=== PATIENT | female | born 1960 | race American Indian/Alaskan Native ===

== ENCOUNTER 2017-07-03 17:58 | Inpatient (IN) | payer MEDICARE ==
[2017-07-03 19:16] LABS: Basophils % (Auto) 0.4 % (0.0-1.8); Eosinophils % (Auto) 0.3 % (0.0-4.3); Hematocrit 33.9 % (30.3-42.9); Hemoglobin 10.8 gm/dl (10.1-14.3); Mean Corpuscular HGB Conc 32 % (30-34); Mean Corpuscular Volume 76 fl (79-97); Platelet Count 259 K/mm3 (140-440); Red Blood Count 4.45 M/mm3 (3.65-5.03); White Blood Count 8.1 K/mm3 (4.5-11.0)
[2017-07-03 19:18] LABS: Mean Corpuscular Hemoglobin 24 pg (28-32)
--- NOTE | 2017-07-03 19:30 | Emergency Department Report ---
ED Shortness of Breath HPI - General Chief Complaint: Dyspnea/Respdistress Stated Complaint: RESPIRATORY DISTRESS/POSS P.E Time Seen by Provider: 07/03/17 19:18 Source: patient, EMS, waterproof material folder Mode of arrival: Stretcher Limitations: Physical Limitation - History of Present Illness Initial Comments: Patient is a 57-year-old female history of asthma, CVA 2, hypertension sent from her primary care physician office for evaluation SHORTNESS of breath for the last few days. Patient stated that she has difficulty breathing when she woke she has leg swelling. Patient denied any chest pain, cough or fever. No nausea no vomiting. MD Complaint: shortness of breath -: Gradual Severity: moderate Known History Of: asthma - Related Data Allergies Allergy/AdvReac Type Severity Reaction Status Date / Time aspirin Allergy Unknown Verified 07/03/17 18:33 ED Review of Systems ROS: Stated complaint: RESPIRATORY DISTRESS/POSS P.E Other details as noted in HPI Comment: All other systems reviewed and negative Constitutional: denies: chills, fever Respiratory: orthopnea, shortness of breath, SOB with exertion, SOB at rest. denies: cough, wheezing Cardiovascular: denies: chest pain, palpitations ED Past Medical Hx - Past Medical History Hx Hypertension: Yes Hx CVA: Yes Hx Pulmonary Embolism: Yes Hx Asthma: Yes - Social History Smoking Status: Current Every Day Smoker Substance Use Type: Alcohol, Marijuana ED Physical Exam - General Limitations: Physical Limitation General appearance: alert, in no apparent distress - Head Head exam: Present: atraumatic, normocephalic, normal inspection - Eye Eye exam: Present: normal appearance, PERRL - ENT ENT exam: Present: normal exam, mucous membranes moist - Neck Neck exam: Present: normal inspection, full ROM. Absent: tenderness, meningismus - Respiratory Respiratory exam: Present: decreased breath sounds. Absent: respiratory distress, wheezes, rales, rhonchi - Cardiovascular Cardiovascular Exam: Present: regular rate, normal rhythm, normal heart sounds - GI/Abdominal GI/Abdominal exam: Present: soft, normal bowel sounds. Absent: distended, tenderness, guarding, rebound, rigid, organomegaly, mass, bruit, pulsatile mass , hernia - Extremities Exam Extremities exam: Present: normal inspection, full ROM, normal capillary refill. Absent: tenderness, pedal edema, joint swelling, calf tenderness - Neurological Exam Neurological exam: Present: alert, oriented X3, CN II-XII intact, normal gait - Skin Skin exam: Present: warm, intact, normal color. Absent: cyanosis ED Course Vital Signs 07/03/17 07/03/17 07/03/17 18:34 18:37 18:45 Temperature 97.6 F Pulse Rate 84 85 88 Respiratory 20 29 H 23 Rate Blood Pressure 141/93 O2 Sat by Pulse 97 98 96 Oximetry 07/03/17 07/03/17 18:50 19:00 Temperature Pulse Rate 82 Respiratory 22 26 H Rate Blood Pressure 124/88 O2 Sat by Pulse 96 96 Oximetry ED Medical Decision Making - Lab Data Result diagrams: 07/03/17 18:58 07/03/17 18:58 - EKG Data -: EKG Interpreted by Me EKG shows normal: sinus rhythm - EKG Data Interpretation: no acute changes - Radiology Data Radiology results: image reviewed Chest x-ray pulmonary edema. - Medical Decision Making Discussed with Dr. Maria E Lazar, presenting the patient, she agreed to admit the patient to her service. Critical care attestation.: If time is entered above; I have spent that time in minutes in the direct care of this critically ill patient, excluding procedure time. ED Disposition Clinical Impression: Shortness of breath, CHF exacerbation Disposition: OP ADMIT IP TO THIS HOSP Is pt being admited?: Yes Condition: Stable Referrals: PRIMARY CARE, [Primary Care Provider] - 3-5 Days
[2017-07-03 19:34] LABS: Anion Gap 18 mmol/L; BUN/Creatinine Ratio 19; Blood Urea Nitrogen 15 mg/dL (7-17); Calcium 8.4 mg/dL (8.4-10.2); Carbon Dioxide 24 mmol/L (22-30); Chloride 105.5 mmol/L (98-107); Glucose 97 mg/dL (65-100); Potassium 3.6 mmol/L (3.6-5.0); Sodium 144 mmol/L (137-145)
[2017-07-03 20:36] LABS: INR 2.21 (0.87-1.13)
[2017-07-03 20:37] LABS: Partial Thromboplastin Time 34.1 Sec. (24.2-36.6)
[2017-07-03] MEDS ORDERED: LASIX IV ONE (22:10)
[2017-07-04] MEDS ORDERED: DULCOLAX PR PRN (00:48)
[2017-07-04] MEDS ORDERED: MILK OF MAGNESIA PO PRN (00:48)
[2017-07-04] MEDS ORDERED: ZOFRAN IV PRN (00:48)
--- NOTE | 2017-07-04 00:52 | History and Physical Report ---
History of Present Illness Date of examination: 07/04/17 History of present illness: 57 year old woman with history of HTN, PE, asthma, CVA comes to the emergency room with complaints of SOB, lower extremity edema and orthropnea for 1 week. Review Of Systems: Constitutional: no weight loss Ears, eyes, nose, mouth and throat: no nasal congestion, no nasal discharge, no sinus pressure, blurry vision, diplopia Neck: No neck pain or rigidity. Cardiovascular: no chest pain, palpitations Respiratory: No cough Gastrointestinal: no abdominal pain, hematochezia Genitourinary : no dysuria, frequency , hematuria Musculoskeletal: no muscle ache Integumentary: no rash, no pruritis Neurological: no parathesias, focal weakness Endocrine: no cold or heat intolerance, no polyuria or polydipsia Hematologic/Lymphatic: no easy bruising, no easy bleeding, no gland swelling Allergic/Immunologic: no urticaria, no angioedema. PAST MEDICAL HISTORY:HTN, PE, asthma, CVA PAST SURGICAL HISTORY: tubal ligation, surgry on foot FAMILY HISTORY: Hypertension SOCIAL HISTORY: Denies alcohol, tobacco, drugs Medications and Allergies Allergies Allergy/AdvReac Type Severity Reaction Status Date / Time aspirin Allergy Unknown Verified 07/03/17 18:33 Home Medications Medication Instructions Recorded Confirmed Last Taken Type Albuterol Sulfate [Proair 90 mcg IH 6XD 07/04/17 07/04/17 1 Day Ago History Respiclick] ~07/03/17 Famotidine [Pepcid] 20 mg PO BID 07/04/17 07/04/17 1 Day Ago History ~07/03/17 Fluticasone [Flonase] 1 spray NS QDAY 07/04/17 07/04/17 1 Day Ago History ~07/03/17 Hydrochlorothiazide [HCTZ] 25 mg PO QDAY PRN 07/04/17 07/04/17 1 Week Ago History ~06/27/17 Ipratropium/Albuterol Sulfate 1 ampul IH Q6HR 07/04/17 07/04/17 1 Day Ago History [DUONEB *Not for PRN Use*] ~07/03/17 Metoprolol Xl [Metoprolol 25 mg PO QDAY 07/04/17 07/04/17 1 Day Ago History SUCCINATE ER TAB] ~07/03/17 Montelukast [Singulair] 10 mg PO QPM 07/04/17 07/04/17 1 Day Ago History ~07/03/17 PARoxetine [Paxil] 30 mg PO DAILY 07/04/17 07/04/17 1 Day Ago History ~07/03/17 Potassium Chloride [K-Dur] 10 meq PO QDAY 07/04/17 07/04/17 1 Week Ago History ~06/27/17 Simvastatin [Zocor TAB] 40 mg PO QHS 07/04/17 07/04/17 1 Day Ago History ~07/03/17 Warfarin Sodium [Coumadin] 4.5 mg PO DAILY 07/04/17 07/04/17 1 Day Ago History ~07/03/17 traZODone [Desyrel] 50 mg PO QHS PRN 07/04/17 07/04/17 1 Day Ago History ~07/03/17 Lisinopril [Zestril TAB] 2.5 mg PO QDAY #30 tablet 07/09/17 Unknown Rx Ondansetron [Zofran INJ] 4 mg IV Q8H PRN vial 07/09/17 Unknown Rx Exam - Physical Exam Narrative exam: Gen. appearance: Patient lying in bed in no acute distress HEENT: Normocephalic/atraumatic, pupils equal round reactive to light, extra alkaline movement intact, no scleral icterus, no JVD or thyromegaly or nodule, neck is supple, mucous membrane moist, no erythema or exudate Heart: S1-S2, regular rate and rhythm Lungs: Crackles bilateral breathing comfortable Abdomen: Positive bowel sounds, nontender, nondistended, no organomegaly Extremities: + edema, cyanosis, clubbing Neuro:: Oriented 3 , cranial nerves II-12 intact, speech, motor intact Skin: No rash, nodules, warm dry - Constitutional Vitals: Temp Pulse Resp BP Pulse Ox 97.6 F 82 26 H 124/88 96 07/03/17 18:34 07/03/17 19:00 07/03/17 19:00 07/03/17 19:00 07/03/17 19:00 Results - Labs CBC & Chem 7: 07/07/17 14:28 07/07/17 14:28 Labs: Abnormal lab results 07/03/17 07/03/17 07/03/17 Range/Units 18:58 19:38 19:38 MCV 76 L (79-97) fl MCH 24 L (28-32) pg RDW 18.0 H (13.2-15.2) % Lymph % (Auto) 11.9 L (13.4-35.0) % Lymph # 1.0 L (1.2-5.4) K/mm3 Seg Neutrophils % 81.4 H (40.0-70.0) % PT 25.8 H (12.2-14.9) Sec. INR 2.21 H (0.87-1.13) D-Dimer 297.20 H (0-234) ng/mlDDU NT-Pro-B Natriuret Pep 4214 H (0-900) pg/mL - Imaging and Cardiology EKG: image reviewed Chest x-ray: image reviewed Assessment and Plan Assessment CHF, acute , new onst, prob diastolic Hypertension Plmonary emboli on coumadin Asthma Admit to medicine Diurese with IV lasix Start BB, ACEI, no asa, atient allergic Check cardiac enzymes, echo Consult cardiology Monitor I/Os, daily weights continue outpatient medications , dvt prophalaxis with coumadin
[2017-07-04] MEDS: LASIX IV SCH ×2 (05:52→19:17)
--- NOTE | 2017-07-04 07:33 | XRay Report ---
CHEST 2 VIEWS INDICATION: Shortness of breath. COMPARISON: None similar. FINDINGS: PA and lateral chest radiographs demonstrate increased markings centrally and predominantly in mid to lower lung zones. Fluid or thickening along the fissures as also small bibasilar pleural effusions also suspected. Peribronchial thickening. Top normal heart size. EKG leads. Mild thoracic dextroscoliosis apex about T8. CONCLUSION: Small bilateral pleural effusions and mild CHF suspected radiographically, as described. Please also correlate clinically and with prior chest imaging, if available. Thank you for the opportunity to participate in this patient's care.
[2017-07-04] MEDS ORDERED: LOPRESSOR PO SCH (10:00)
[2017-07-04] MEDS: ZESTRIL PO SCH (10:26)
[2017-07-04] MEDS ORDERED: PNEUMOVAX 23 IM ONE (12:00)
[2017-07-04] MEDS ORDERED: Fluarix Quad 2017-2018(36 MOS+ IM ONE (12:00)
[2017-07-04] MEDS ORDERED: HCTZ PO PRN (13:58)
[2017-07-04] MEDS ORDERED: DESYREL PO PRN (13:58)
--- NOTE | 2017-07-04 16:07 | Consultation ---
History of Present Illness Consult date: 07/04/17 Consult reason: congestive heart failure History of present illness: This is a 57yr old woman who was sent from her primary care physicians office for shortness of breath. There was no reports of chest pain or palpitations. A chest x-ray report suspects CHF. A 12 lead ECG is a normal sinus rhythm, no acute ischemic changes. Initial workup shows an INR of 2.2. Patient has a history of old CVA with right sided weakness and Hypertension. She is on warfarin for oral anticoagulation. Her most recent cardiac workup was done a year ago. She had a normal myocardial perfusion persantine thallium stress test. An echocardiogram done reports a moderate aortic stenosis. Normal left ventricular systolic function, ejection fraction 55%. Medications and Allergies Allergies Allergy/AdvReac Type Severity Reaction Status Date / Time aspirin Allergy Unknown Verified 07/03/17 18:33 Home Medications Medication Instructions Recorded Confirmed Last Taken Type Albuterol Sulfate [Proair 90 mcg IH 6XD 07/04/17 07/04/17 1 Day Ago History Respiclick] ~07/03/17 Famotidine [Pepcid] 20 mg PO BID 07/04/17 07/04/17 1 Day Ago History ~07/03/17 Fluticasone [Flonase] 1 spray NS QDAY 07/04/17 07/04/17 1 Day Ago History ~07/03/17 Hydrochlorothiazide [HCTZ] 25 mg PO QDAY PRN 07/04/17 07/04/17 1 Week Ago History ~06/27/17 Ipratropium/Albuterol Sulfate 1 ampul IH Q6HR 07/04/17 07/04/17 1 Day Ago History [DUONEB *Not for PRN Use*] ~07/03/17 Metoprolol Xl [Metoprolol 25 mg PO QDAY 07/04/17 07/04/17 1 Day Ago History SUCCINATE ER TAB] ~07/03/17 Montelukast [Singulair] 10 mg PO QPM 07/04/17 07/04/17 1 Day Ago History ~07/03/17 PARoxetine [Paxil] 30 mg PO DAILY 07/04/17 07/04/17 1 Day Ago History ~07/03/17 Potassium Chloride [K-Dur] 10 meq PO QDAY 07/04/17 07/04/17 1 Week Ago History ~06/27/17 Simvastatin [Zocor TAB] 40 mg PO QHS 07/04/17 07/04/17 1 Day Ago History ~07/03/17 Warfarin Sodium [Coumadin] 4.5 mg PO DAILY 07/04/17 07/04/17 1 Day Ago History ~07/03/17 traZODone [Desyrel] 50 mg PO QHS PRN 07/04/17 07/04/17 1 Day Ago History ~07/03/17 Active Meds: Active Medications Acetaminophen (Tylenol) 650 mg PO Q4H PRN PRN Reason: Pain MILD(1-3)/Fever >100.5/[place] Albuterol/Ipratropium (Duoneb *Not For Prn Use*) 1 ampul IH Q6HR [facility] Bisacodyl (Dulcolax) 10 mg IN QDAY PRN PRN Reason: Constipation unrelieved by [facility] Fluticasone Propionate (Flonase) 50 mcg NS QDAY [facility] Furosemide (Lasix) 40 mg IV BID@0600,1800 [facility] Last Admin: 07/04/17 05:52 Dose: 40 mg Hydrochlorothiazide (Hctz) 25 mg PO QDAY PRN PRN Reason: Edema Lisinopril (Zestril) 2.5 mg PO QDAY [facility] Last Admin: 07/04/17 10:26 Dose: 2.5 mg Magnesium Hydroxide (Milk Of Magnesia) 30 ml PO Q4H PRN PRN Reason: Constipation Metoprolol Succinate (Toprol Xl) 25 mg PO QDAY [facility] Montelukast Sodium (Singulair) 10 mg PO QPM [facility] Ondansetron HCl (Zofran) 4 mg IV Q8H PRN PRN Reason: N/V unrelieved by [facility] Paroxetine HCl (Paxil) 30 mg PO DAILY [facility] Potassium Chloride (K-Dur) 10 meq PO QDAY [facility] Pravastatin Sodium (Pravachol) 80 mg PO QHS [facility] Trazodone HCl (Desyrel) 50 mg PO QHS PRN PRN Reason: Anxiety Warfarin Sodium (Coumadin Pharmacy To Dose) 1 each PO PKCONSULT [facility] PRN Reason: Protocol Warfarin Sodium (Coumadin) 2.5 mg PO DAILY@1700 [facility] Warfarin Sodium (Coumadin) 2 mg PO DAILY@1700 [facility] Physical Examination Vital Signs Temp Pulse Resp BP Pulse Ox 97.6 F 84 20 141/93 97 07/03/17 18:34 07/03/17 18:34 07/03/17 18:34 07/03/17 18:34 07/03/17 18:34 General appearance: no acute distress HEENT: Positive: PERRL Cardiac: Positive: Reg Rate and Rhythm Results 07/03/17 18:58 07/03/17 18:58 Coagulation 07/03/17 Range/Units 19:38 PT 25.8 H (12.2-14.9) Sec. INR 2.21 H (0.87-1.13) APTT 34.1 (24.2-36.6) Sec. CBC 07/03/17 Range/Units 18:58 WBC 8.1 (4.5-11.0) K/mm3 RBC 4.45 (3.65-5.03) M/mm3 Hgb 10.8 (10.1-14.3) gm/dl Hct 33.9 (30.3-42.9) % Plt Count 259 (140-440) K/mm3 Lymph # 1.0 L (1.2-5.4) K/mm3 [place] # 0.5 (0.0-0.8) K/mm3 Eos # 0.0 (0.0-0.4) K/mm3 Baso # 0.0 (0.0-0.1) K/mm3 Comprehensive Metabolic Panel 07/03/17 Range/Units 18:58 Sodium 144 (137-145) mmol/L Potassium 3.6 (3.6-5.0) mmol/L Chloride 105.5 (98-107) mmol/L Carbon Dioxide 24 (22-30) mmol/L BUN 15 (7-17) mg/dL Creatinine 0.8 (0.7-1.2) mg/dL Glucose 97 (65-100) mg/dL Calcium 8.4 (8.4-10.2) mg/dL Assessment and Plan Shortness of breath no evidence of DVT Hypertension Prior CVA on warfarin for oral anticoagulation
[2017-07-04] MEDS ORDERED: COUMADIN PO SCH ×2 (17:00)
[2017-07-04] MEDS ORDERED: DUONEB *Not for PRN Use IH SCH (18:00)
--- NOTE | 2017-07-04 18:10 | Cat Scan Report ---
FINAL REPORT EXAM: CT ANGIO CHEST HISTORY: PE TECHNIQUE: CT examination of the chest with IV contrast CT angiographic 2D and thick slab 3D image post-processing PRIORS: None. FINDINGS: Enlarged thyroid versus nodule extending from lower pole of left thyroid lobe. It is hypodense and may be a cyst. Normal cardiac size without pericardial effusion. Intact normal caliber thoracic aorta. Normal-appearing esophagus. No mediastinal adenopathy. Slight prominence of lymphoid tissue in both giovanni may be reactive. Small bilateral pleural effusions layering posteriorly. Slight fluid extends into the right major and minor fissure. The visualized pulmonary arteries are diffusely patent bilaterally. There is no filling defect to suggest PE. Smoothly marginated hypodense right and left hepatic lobe lesions are nonspecific and may reflect cysts and/or hemangiomas. These are too small to characterize. They do not enhance with IV contrast. Low-density likely fatty lesion in left adrenal gland suggestive of benign lipid rich adenoma. No evidence of acute fracture. No pneumothorax. Slight linear atelectasis in both lung bases posteriorly. 5.5 mm nonspecific pulmonary nodule in the lateral lingula, series 3, image 67. This is a small flat nodule along the fissure and may be a pulmonary reactive lymph node. Small calcified granuloma left upper lobe. IMPRESSION: Lingular fissural nodule may be a pulmonary reactive lymph node. Consider follow-up surveillance chest CT in 1 year Enlarged left thyroid lobe with inferior extension versus nodule extending from lower pole of left thyroid Slight prominence of lymphoid tissue in both giovanni may be reactive Small bilateral pleural effusions layering posteriorly and tracking into the right minor fissure Small liver lesions suggestive of cysts and/or hemangiomas Low-density likely fatty lesion in left adrenal gland suggestive of benign lipid rich adenoma Slight linear atelectasis in both lung bases posteriorly No CT evidence of PE
[2017-07-04] MEDS: SINGULAIR PO SCH (19:19)
[2017-07-04] MEDS: DUONEB *Not for PRN Use IH SCH (20:29)
[2017-07-04] MEDS: PRAVACHOL PO SCH (21:15)
[2017-07-04] MEDS ORDERED: NON-FORMULARY (Simvastatin 40 MG) PO SCH (22:00)
--- NOTE | 2017-07-04 22:53 | Event Note ---
Date: 07/04/17 patient seen and examined in no acute distress. still with shortness of breath. patient reports hx of 3 strokes in the past. will check CTA to rule out PE, although doubt this with therapeutic INR. also r/o lower ext DVT. continue current management. discussed with cardiology team
[2017-07-05] MEDS: DUONEB *Not for PRN Use IH SCH ×4 (00:42→19:26)
[2017-07-05] MEDS: LASIX IV SCH ×2 (05:22→17:21)
[2017-07-05 07:03] LABS: Basophils % (Auto) 0.3 % (0.0-1.8); Hematocrit 39.7 % (30.3-42.9); Hemoglobin 13.1 gm/dl (10.1-14.3); Mean Corpuscular HGB Conc 33 % (30-34); Mean Corpuscular Volume 76 fl (79-97); Platelet Count 264 K/mm3 (140-440); Red Blood Count 5.22 M/mm3 (3.65-5.03); Red Cell Distribution Width 18.2 % (13.2-15.2); White Blood Count 5.6 K/mm3 (4.5-11.0)
[2017-07-05 07:11] LABS: Mean Corpuscular Hemoglobin 25 pg (28-32)
--- NOTE | 2017-07-05 07:14 | Vascular Lab Report ---
LOWER EXTREMITY VENOUS DUPLEX: REASON FOR EXAM: Swelling of the lower extremities. COMMENTS ON THE RIGHT: All veins visualized are freely compressible without evidence of internal echogenicity. Flow is spontaneous and phasic throughout. COMMENTS ON THE LEFT: All veins visualized are freely compressible without evidence of internal echogenicity. Flow is spontaneous and phasic throughout. IMPRESSION: No evidence of acute or chronic deep venous thrombosis in either lower extremity.
[2017-07-05 07:18] LABS: INR 1.83 (0.87-1.13)
[2017-07-05 07:19] LABS: Partial Thromboplastin Time 33.1 Sec. (24.2-36.6)
[2017-07-05 07:25] LABS: Anion Gap 22 mmol/L; BUN/Creatinine Ratio 14; Blood Urea Nitrogen 13 mg/dL (7-17); Calcium 8.7 mg/dL (8.4-10.2); Carbon Dioxide 25 mmol/L (22-30); Chloride 97.9 mmol/L (98-107); Glucose 95 mg/dL (65-100); Potassium 3.2 mmol/L (3.6-5.0); Sodium 142 mmol/L (137-145)
[2017-07-05] MEDS: TYLENOL PO PRN (08:31)
--- NOTE | 2017-07-05 09:51 | Progress Note ---
Assessment and Plan Heart failure with a preserved EF 50% no evidence of DVT low probability for PE on CTA Severe Mitral stenosis Hypertension Prior CVA Hx of PE on warfarin for oral anticoagulation Recommendations: Patient will benefit from a right and left heart catheterization once heart failure is optimally resolved. We will hold warfarin and plan a right and left cardiac cath on Saturday. Subjective Date of service: 07/05/17 Interval history: Patient denies chest pain and reports her breathing is better. Objective Vital Signs Temp Pulse Pulse Resp Resp BP BP 07/05/17 07:38 85 20 07/05/17 07:16 83 20 07/05/17 04:14 98.2 F 73 18 109/71 07/05/17 04:00 80 07/05/17 00:38 07/04/17 23:36 98.1 F 81 18 116/69 07/04/17 20:32 79 16 07/04/17 20:24 74 15 07/04/17 19:51 98.4 F 78 18 96/54 07/04/17 17:00 98.8 F 105 H 20 187/96 07/04/17 16:27 98.8 F 67 20 117/73 Pulse Ox 07/05/17 07:38 07/05/17 07:16 96 07/05/17 04:14 96 07/05/17 04:00 07/05/17 00:38 97 07/04/17 23:36 98 07/04/17 20:32 97 07/04/17 20:24 07/04/17 19:51 97 07/04/17 17:00 96 07/04/17 16:27 99 - Physical Examination General: No Apparent Distress HEENT: Positive: PERRL Cardiac: Positive: Reg Rate and Rhythm Lungs: Positive: Decreased Breath Sounds Neuro: Positive: Grossly Intact - Labs and Meds Coagulation 07/05/17 Range/Units 06:05 PT 22.2 H (12.2-14.9) Sec. INR 1.83 H (0.87-1.13) APTT 33.1 (24.2-36.6) Sec. CBC 07/05/17 Range/Units 06:05 WBC 5.6 (4.5-11.0) K/mm3 RBC 5.22 H (3.65-5.03) M/mm3 Hgb 13.1 (10.1-14.3) gm/dl Hct 39.7 (30.3-42.9) % Plt Count 264 (140-440) K/mm3 Lymph # 1.2 (1.2-5.4) K/mm3 [place] # 0.5 (0.0-0.8) K/mm3 Eos # 0.1 (0.0-0.4) K/mm3 Baso # 0.0 (0.0-0.1) K/mm3 Comprehensive Metabolic Panel 07/05/17 Range/Units 06:05 Sodium 142 (137-145) mmol/L Potassium 3.2 L (3.6-5.0) mmol/L Chloride 97.9 L (98-107) mmol/L Carbon Dioxide 25 (22-30) mmol/L BUN 13 (7-17) mg/dL Creatinine 0.9 (0.7-1.2) mg/dL Glucose 95 (65-100) mg/dL Calcium 8.7 (8.4-10.2) mg/dL - Imaging and Cardiology EKG: image reviewed
[2017-07-05] MEDS ORDERED: WARFARIN SODIUM 4.5 MG PO SCH (10:00)
[2017-07-05] MEDS: ZESTRIL PO SCH (10:51)
[2017-07-05] MEDS: K-DUR PO SCH (10:52)
[2017-07-05] MEDS: PAXIL PO SCH (10:52)
[2017-07-05] MEDS: TOPROL XL PO SCH (10:52)
[2017-07-05] MEDS: FLONASE NS SCH (10:52)
[2017-07-05] MEDS ORDERED: K-DUR PO ONE (13:00)
--- NOTE | 2017-07-05 16:53 | Progress Note ---
Assessment and Plan Assessment and plan: 57 year old woman with history of HTN, PE, asthma, CVA comes to the emergency room with complaints of SOB, lower extremity [place] and orthropnea for 1 week. CHF, acute , new onst, diastolic Hypertension Severe mitral valve stenosis CVA-old with no residual effects Pulmonary emboli on coumadin Asthma Plan Continue Diurese with IV lasix Start Lovenox discontinue warfarin for planned cardiac catheterization Discussed with Dr. Dawson patient to have cardiac catheterization for left heart right heart evaluation on Saturday Continue BB, ACEI, no asa, patient's is allergic to aspirin Check cardiac enzymes, echo Consult cardiology Monitor I/Os, daily weights continue outpatient medications , dvt prophalaxis with coumadin DVT and GI prophylaxis Plan of care discussed with the patient in detail she verbalized understanding Plan also discussed with [employer] general supervisor. History Interval history: Patient seen and examined this morning in nonacute distress reports improvement in shortness of breath. Denies any nausea vomiting or diarrhea denies any fever. Hospitalist Physical - Physical exam Narrative exam: VITAL SIGNS: Reviewed. GENERAL: The patient appeared well nourished and normally developed. Vital signs as documented. HEAD: No signs of head trauma. EYES: Pupils are equal. Extraocular motions intact. EARS: Hearing grossly intact. MOUTH: Oropharynx is normal. NECK: No adenopathy, no JVD. CHEST: Chest with clear breath sounds bilaterally. No wheezes, rales, or rhonchi. CARDIAC: Regular rate and rhythm. S1 and S2, and diastolic heart murmur,no gallops, or rubs. VASCULAR: No Edema. Peripheral pulses normal and equal in all extremities. ABDOMEN: Soft, without detectable tenderness. No sign of distention. No rebound or guarding, and no masses palpated. Bowel Sounds normal. MUSCULOSKELETAL: Good range of motion of all major joints. Extremities without clubbing, cyanosis or edema. NEUROLOGIC EXAM: Alert and oriented x 3. No focal sensory or strength deficits. Speech normal. Follows commands. PSYCHIATRIC: Mood normal. SKIN: No rash or lesions. - Constitutional Vitals: Temp Pulse Resp BP Pulse Ox 98.4 F 89 20 95/59 94 07/05/17 10:04 07/05/17 14:14 07/05/17 14:14 07/05/17 10:04 07/05/17 10:04 General appearance: Present: no acute distress Results - Labs CBC & Chem 7: 07/05/17 06:05 07/05/17 06:05 Labs: Laboratory Last Values WBC 5.6 K/mm3 (4.5-11.0) 07/05/17 06:05 RBC 5.22 M/mm3 (3.65-5.03) H 07/05/17 06:05 Hgb 13.1 gm/dl (10.1-14.3) 07/05/17 06:05 Hct 39.7 % (30.3-42.9) 07/05/17 06:05 MCV 76 fl (79-97) L 07/05/17 06:05 MCH 25 pg (28-32) L 07/05/17 06:05 MCHC 33 % (30-34) 07/05/17 06:05 RDW 18.2 % (13.2-15.2) H 07/05/17 06:05 Plt Count 264 K/mm3 (140-440) 07/05/17 06:05 Lymph % (Auto) 21.4 % (13.4-35.0) 07/05/17 06:05 [place] % (Auto) 9.3 % (0.0-7.3) H 07/05/17 06:05 Eos % (Auto) 1.0 % (0.0-4.3) 07/05/17 06:05 Baso % (Auto) 0.3 % (0.0-1.8) 07/05/17 06:05 Lymph # 1.2 K/mm3 (1.2-5.4) 07/05/17 06:05 [place] # 0.5 K/mm3 (0.0-0.8) 07/05/17 06:05 Eos # 0.1 K/mm3 (0.0-0.4) 07/05/17 06:05 Baso # 0.0 K/mm3 (0.0-0.1) 07/05/17 06:05 Seg Neutrophils % 68.0 % (40.0-70.0) 07/05/17 06:05 Seg Neutrophils # 3.8 K/mm3 (1.8-7.7) 07/05/17 06:05 PT 22.2 Sec. (12.2-14.9) H 07/05/17 06:05 INR 1.83 (0.87-1.13) H 07/05/17 06:05 APTT 33.1 Sec. (24.2-36.6) 07/05/17 06:05 D-Dimer 297.20 ng/mlDDU (0-234) H 07/03/17 19:38 Sodium 142 mmol/L (137-145) 07/05/17 06:05 Potassium 3.2 mmol/L (3.6-5.0) L 07/05/17 06:05 Chloride 97.9 mmol/L (98-107) L 07/05/17 06:05 Carbon Dioxide 25 mmol/L (22-30) 07/05/17 06:05 Anion Gap 22 mmol/L 07/05/17 06:05 BUN 13 mg/dL (7-17) 07/05/17 06:05 Creatinine 0.9 mg/dL (0.7-1.2) 07/05/17 06:05 Estimated GFR > 60 ml/min 07/05/17 06:05 BUN/Creatinine Ratio 14 % 07/05/17 06:05 Glucose 95 mg/dL (65-100) 07/05/17 06:05 Calcium 8.7 mg/dL (8.4-10.2) 07/05/17 06:05 Troponin T < 0.010 ng/mL (0.00-0.029) 07/03/17 18:58 NT-Pro-B Natriuret Pep 4214 pg/mL (0-900) H 07/03/17 19:38 HCG, Qual Negative (Negative) 07/03/17 18:58
[2017-07-05] MEDS: SINGULAIR PO SCH (17:21)
[2017-07-05] MEDS: PRAVACHOL PO SCH (21:19)
[2017-07-05] MEDS: LOVENOX SUB-Q SCH (21:19)
[2017-07-06] MEDS: DUONEB *Not for PRN Use IH SCH ×4 (01:34→20:44)
[2017-07-06] MEDS: LASIX IV SCH ×2 (06:21→17:03)
[2017-07-06 08:11] LABS: INR 1.77 (0.87-1.13)
[2017-07-06] MEDS: FLONASE NS SCH (10:29)
[2017-07-06] MEDS: K-DUR PO SCH (10:29)
[2017-07-06] MEDS: PAXIL PO SCH (10:29)
[2017-07-06] MEDS: LOVENOX SUB-Q SCH ×2 (10:29→21:07)
--- NOTE | 2017-07-06 10:29 | Progress Note ---
Assessment and Plan Assessment and plan: Assessment and Plan Assessment and plan: 57 year old woman with history of HTN, PE, asthma, CVA comes to the emergency room with complaints of SOB, lower extremity edeman and orthropnea for 1 week. CHF, acute , new onst, diastolic Hypertension Severe mitral valve stenosis CVA-old with no residual effects Pulmonary emboli on coumadin Asthma Plan Continue Diuresis with IV lasix Start Lovenox discontinue warfarin for planned cardiac catheterization Discussed with Dr. Dawson patient to have cardiac catheterization for left heart right heart evaluation on Saturday Continue BB, ACEI, no asa, patient's is allergic to aspirin Check cardiac enzymes, echo Consult cardiology Monitor I/Os, daily weights continue outpatient medications , dvt prophalaxis with coumadin DVT and GI prophylaxis Plan of care discussed with the patient in detail she verbalized understanding Plan also discussed with lead generator. Cath on Saturday History Interval history: Due for Cath on Saturday No Chest pain Hospitalist Physical - Constitutional Vitals: Temp Pulse Resp BP Pulse Ox 97.8 F 58 L 16 97/65 98 07/06/17 09:03 07/06/17 09:03 07/06/17 09:03 07/06/17 09:03 07/06/17 09:03 General appearance: Present: no acute distress - EENT Eyes: Present: PERRL, EOM intact - Neck Neck: Present: supple, normal ROM - Respiratory Respiratory effort: normal Respiratory: bilateral: CTA - Cardiovascular Heart rate: 78 Rhythm: regular - Extremities Extremities: no ischemia, pulses intact Peripheral Pulses: within normal limits - Abdominal General gastrointestinal: soft, non-tender, normal bowel sounds - Integumentary Integumentary: Present: clear, warm - Psychiatric Psychiatric: appropriate mood/affect, intact judgment & insight, memory intact, cooperative - Neurologic Neurologic: CNII-XII intact - Allied Health Allied health notes reviewed: nursing, case management Results - Labs CBC & Chem 7: 07/05/17 06:05 07/05/17 06:05 Labs: Laboratory Last Values WBC 5.6 K/mm3 (4.5-11.0) 07/05/17 06:05 RBC 5.22 M/mm3 (3.65-5.03) H 07/05/17 06:05 Hgb 13.1 gm/dl (10.1-14.3) 07/05/17 06:05 Hct 39.7 % (30.3-42.9) 07/05/17 06:05 MCV 76 fl (79-97) L 07/05/17 06:05 MCH 25 pg (28-32) L 07/05/17 06:05 MCHC 33 % (30-34) 07/05/17 06:05 RDW 18.2 % (13.2-15.2) H 07/05/17 06:05 Plt Count 264 K/mm3 (140-440) 07/05/17 06:05 Lymph % (Auto) 21.4 % (13.4-35.0) 07/05/17 06:05 Karnes % (Auto) 9.3 % (0.0-7.3) H 07/05/17 06:05 Eos % (Auto) 1.0 % (0.0-4.3) 07/05/17 06:05 Baso % (Auto) 0.3 % (0.0-1.8) 07/05/17 06:05 Lymph # 1.2 K/mm3 (1.2-5.4) 07/05/17 06:05 Karnes # 0.5 K/mm3 (0.0-0.8) 07/05/17 06:05 Eos # 0.1 K/mm3 (0.0-0.4) 07/05/17 06:05 Baso # 0.0 K/mm3 (0.0-0.1) 07/05/17 06:05 Seg Neutrophils % 68.0 % (40.0-70.0) 07/05/17 06:05 Seg Neutrophils # 3.8 K/mm3 (1.8-7.7) 07/05/17 06:05 PT 21.6 Sec. (12.2-14.9) H 07/06/17 06:54 INR 1.77 (0.87-1.13) H 07/06/17 06:54 APTT 33.1 Sec. (24.2-36.6) 07/05/17 06:05 D-Dimer 297.20 ng/mlDDU (0-234) H 07/03/17 19:38 Sodium 142 mmol/L (137-145) 07/05/17 06:05 Potassium 3.2 mmol/L (3.6-5.0) L 07/05/17 06:05 Chloride 97.9 mmol/L (98-107) L 07/05/17 06:05 Carbon Dioxide 25 mmol/L (22-30) 07/05/17 06:05 Anion Gap 22 mmol/L 07/05/17 06:05 BUN 13 mg/dL (7-17) 07/05/17 06:05 Creatinine 0.9 mg/dL (0.7-1.2) 07/05/17 06:05 Estimated GFR > 60 ml/min 07/05/17 06:05 BUN/Creatinine Ratio 14 % 07/05/17 06:05 Glucose 95 mg/dL (65-100) 07/05/17 06:05 Calcium 8.7 mg/dL (8.4-10.2) 07/05/17 06:05 Troponin T < 0.010 ng/mL (0.00-0.029) 07/03/17 18:58 NT-Pro-B Natriuret Pep 4214 pg/mL (0-900) H 07/03/17 19:38 HCG, Qual Negative (Negative) 07/03/17 18:58
[2017-07-06] MEDS: TOPROL XL PO SCH (11:05)
[2017-07-06] MEDS: ZESTRIL PO SCH (11:05)
--- NOTE | 2017-07-06 11:49 | Progress Note ---
Assessment and Plan Heart failure with a preserved EF 50% no evidence of DVT low probability for PE on CTA Severe Mitral stenosis Hypertension Prior CVA Hx of PE on warfarin for oral anticoagulation Recommendations: Patient will benefit from a right and left heart catheterization once heart failure is optimally resolved. We will hold warfarin and plan a right and left cardiac cath on Saturday. Subjective Date of service: 07/06/17 Interval history: No cardiac complaints. Objective Vital Signs Temp Pulse Pulse Pulse Pulse Resp Resp 07/06/17 11:05 58 L 07/06/17 10:00 58 L 58 L 16 07/06/17 09:03 97.8 F 58 L 16 07/06/17 06:03 98.7 F 91 H 20 07/06/17 01:44 88 18 07/06/17 01:34 85 18 07/05/17 23:45 98.8 F 92 H 20 07/05/17 19:57 98.2 F 101 H 20 07/05/17 19:36 88 18 07/05/17 19:26 86 18 07/05/17 19:15 92 H 07/05/17 17:00 98.2 F 92 H 20 07/05/17 14:14 89 20 07/05/17 13:47 85 20 BP BP Pulse Ox 07/06/17 11:05 97/65 07/06/17 10:00 98 07/06/17 09:03 97/65 98 07/06/17 06:03 96/63 94 07/06/17 01:44 07/06/17 01:34 07/05/17 23:45 83/50 96 07/05/17 19:57 92/55 100 07/05/17 19:36 07/05/17 19:26 07/05/17 19:15 07/05/17 17:00 86/50 96 07/05/17 14:14 07/05/17 13:47 - Physical Examination General: No Apparent Distress HEENT: Positive: PERRL Neck: Positive: neck supple Cardiac: Positive: Reg Rate and Rhythm, Systolic Murmur, Diastolic Murmur Lungs: Positive: clear to auscultation, Decreased Breath Sounds Neuro: Positive: Grossly Intact Abdomen: Positive: Soft, Active Bowel Sounds - Labs and Meds Coagulation 07/06/17 Range/Units 06:54 PT 21.6 H (12.2-14.9) Sec. INR 1.77 H (0.87-1.13) - Imaging and Cardiology EKG: image reviewed
[2017-07-06] MEDS: SINGULAIR PO SCH (17:09)
[2017-07-06] MEDS: PRAVACHOL PO SCH (21:07)
[2017-07-06] MEDS ORDERED: PROVENTIL IH PRN (21:28)
[2017-07-07 05:34] LABS: INR 1.49 (0.87-1.13)
[2017-07-07] MEDS: DUONEB *Not for PRN Use IH SCH ×3 (08:51→20:43)
[2017-07-07] MEDS: LOVENOX SUB-Q SCH ×2 (09:15→22:45)
[2017-07-07] MEDS: PAXIL PO SCH (09:16)
[2017-07-07] MEDS: K-DUR PO SCH (09:17)
[2017-07-07] MEDS: TOPROL XL PO SCH (09:17)
[2017-07-07] MEDS: TYLENOL PO PRN (09:17)
[2017-07-07] MEDS: ZESTRIL PO SCH (10:18)
[2017-07-07] MEDS ORDERED: NACL 0.9% 500 ML 500 ML IV SCH (12:00)
--- NOTE | 2017-07-07 12:00 | Progress Note ---
Assessment and Plan Heart failure with a preserved EF 50% no evidence of DVT low probability for PE on CTA Severe Mitral stenosis Hypertension Prior CVA Hx of PE on warfarin for oral anticoagulation - currently held Recommendations: Patient will benefit from a right and left heart catheterization once heart failure is optimally resolved. We will hold warfarin and plan a right and left cardiac cath on Saturday. Subjective Date of service: 07/07/17 Interval history: No cardiac complaints. Objective Vital Signs Temp Pulse Pulse Resp Resp BP BP 07/07/17 09:30 98.8 F 84 20 101/65 07/07/17 08:00 70 16 07/07/17 03:19 98.9 F 90 18 92/56 07/06/17 23:31 98.6 F 98 H 18 100/64 07/06/17 20:50 109 H 20 07/06/17 20:40 98 H 20 07/06/17 20:08 98.4 F 86 18 101/62 07/06/17 20:00 86 07/06/17 17:39 97.8 F 106 H 18 94/62 07/06/17 16:41 103 H 94/62 07/06/17 15:26 77 18 07/06/17 15:16 82 18 07/06/17 12:49 98.4 F 69 109/64 07/06/17 12:01 92 H Pulse Ox 07/07/17 09:30 96 07/07/17 08:00 07/07/17 03:19 100 07/06/17 23:31 96 07/06/17 20:50 07/06/17 20:40 07/06/17 20:08 96 07/06/17 20:00 07/06/17 17:39 97 07/06/17 16:41 98 07/06/17 15:26 07/06/17 15:16 07/06/17 12:49 07/06/17 12:01 99 - Physical Examination General: No Apparent Distress HEENT: Positive: PERRL Neck: Positive: neck supple Cardiac: Positive: Reg Rate and Rhythm, Systolic Murmur Lungs: Positive: clear to auscultation Neuro: Positive: Grossly Intact Abdomen: Positive: Soft, Active Bowel Sounds Extremities: Absent: edema - Labs and Meds Coagulation 07/07/17 Range/Units 05:08 PT 18.8 H (12.2-14.9) Sec. INR 1.49 H (0.87-1.13) - Imaging and Cardiology EKG: image reviewed
[2017-07-07 16:21] LABS: Anion Gap 22 mmol/L; BUN/Creatinine Ratio 16; Basophils % (Auto) 0.9 % (0.0-1.8); Blood Urea Nitrogen 13 mg/dL (7-17); Calcium 9.3 mg/dL (8.4-10.2); Carbon Dioxide 22 mmol/L (22-30); Chloride 100.9 mmol/L (98-107); Eosinophils % (Auto) 1.3 % (0.0-4.3); Glucose 86 mg/dL (65-100); Hematocrit 40.3 % (30.3-42.9); Hemoglobin 12.8 gm/dl (10.1-14.3); Mean Corpuscular HGB Conc 32 % (30-34); Mean Corpuscular Volume 77 fl (79-97); Platelet Count 257 K/mm3 (140-440); Potassium 4.6 mmol/L (3.6-5.0); Red Blood Count 5.24 M/mm3 (3.65-5.03); Red Cell Distribution Width 18.4 % (13.2-15.2); Sodium 140 mmol/L (137-145); White Blood Count 5.1 K/mm3 (4.5-11.0)
[2017-07-07 16:31] LABS: Mean Corpuscular Hemoglobin 24 pg (28-32)
[2017-07-07] MEDS: FLONASE NS SCH (16:42)
--- NOTE | 2017-07-07 17:00 | Progress Note ---
Assessment and Plan 57 year old woman with history of HTN, PE, asthma, CVA comes to the emergency room with complaints of SOB, lower extremity edeman and orthropnea for 1 week. Heart Failure, acute. New onst, diastolic failure Hypertension Severe mitral valve stenosis CVA-old with no residual effects Pulmonary emboli on coumadin Asthma Plan Continue Diuresis with IV lasix Start Lovenox discontinue warfarin for planned cardiac catheterization Pt to have right and left heart cath per Cardiology, Dr. Dawson on Saturday, Continue BB, ACEI, no asa, patient's is allergic to aspirin Chelsie nl, echo showed 50-55% EF with diastolic dysfunction. Monitor I/Os, daily weights Continue with duoneb for Asthma continue outpatient medications, dvt prophalaxis with lovenox DVT and GI prophylaxis Plan of care discussed with the patient in detail she verbalized understanding Subjective Date of service: 07/07/17 Principal diagnosis: Acute on chronic heart failure Interval history: Denies any chest pain or shortness of breath Objective - Constitutional Vitals: Vital Signs - 12hr 07/07/17 07/07/17 07/07/17 07:48 08:00 08:10 Temperature 98.8 F Pulse Rate 86 Pulse Rate [ 70 72 Anterior Bilateral Throughout] Respiratory 30 H Rate Respiratory 16 18 Rate [Anterior Bilateral Throughout] Blood Pressure 101/65 Blood Pressure [Left] O2 Sat by Pulse 97 Oximetry 07/07/17 07/07/17 07/07/17 09:17 09:30 10:18 Temperature 98.8 F Pulse Rate 84 Pulse Rate [ Anterior Bilateral Throughout] Respiratory 20 Rate Respiratory Rate [Anterior Bilateral Throughout] Blood Pressure 101/65 101/65 Blood Pressure 101/65 [Left] O2 Sat by Pulse 96 Oximetry 07/07/17 07/07/17 07/07/17 13:00 14:36 14:58 Temperature 98 F Pulse Rate 116 H Pulse Rate [ 82 83 Anterior Bilateral Throughout] Respiratory 24 Rate Respiratory 18 18 Rate [Anterior Bilateral Throughout] Blood Pressure Blood Pressure 100/67 [Left] O2 Sat by Pulse 97 Oximetry General appearance: Present: no acute distress, well-nourished - EENT Eyes: PERRL, EOM intact - Neck Neck: supple, normal ROM - Respiratory Respiratory effort: normal Respiratory: bilateral: CTA - Cardiovascular Rhythm: regular Heart Sounds: Present: S1 & S2. Absent: gallop, rub Extremities: pulses intact, No edema, normal color, Full ROM - Gastrointestinal General gastrointestinal: Present: soft, non-tender, non-distended, normal bowel sounds - Integumentary Integumentary: clear, warm, dry - Musculoskeletal Musculoskeletal: 1, strength equal bilaterally - Neurologic Neurologic: moves all extremities - Psychiatric Psychiatric: memory intact, appropriate mood/affect, intact judgment & insight - Labs CBC & Chem 7: 07/07/17 14:28 07/07/17 14:28 Labs: Abnormal lab results 07/07/17 07/07/17 Range/Units 05:08 14:28 RBC 5.24 H (3.65-5.03) M/mm3 MCV 77 L (79-97) fl MCH 24 L (28-32) pg RDW 18.4 H (13.2-15.2) % Pender % (Auto) 14.4 H (0.0-7.3) % Lymph # 1.1 L (1.2-5.4) K/mm3 PT 18.8 H (12.2-14.9) Sec. INR 1.49 H (0.87-1.13)
[2017-07-07] MEDS: LASIX IV SCH ×2 (18:02→19:37)
[2017-07-07] MEDS: SINGULAIR PO SCH (18:03)
[2017-07-07] MEDS: PRAVACHOL PO SCH (22:45)
[2017-07-08] MEDS ORDERED: NACL 0.9% 500 ML 500 ML IV SCH
[2017-07-08 06:17] LABS: INR 1.29 (0.87-1.13)
[2017-07-08] MEDS: DUONEB *Not for PRN Use IH SCH ×3 (09:10→20:08)
[2017-07-08] MEDS ORDERED: NITROGLYCERIN SYRINGE 0 ML ONE (11:47)
[2017-07-08] MEDS ORDERED: NACL 0.9% 250ML 250 ML ONE (11:47)
[2017-07-08] MEDS ORDERED: HEPARIN/NS 5000 UNIT/500ML(CATH LAB) 1,500 ML IR ONE (11:47)
[2017-07-08] MEDS ORDERED: HEPARIN 10,000 UNITS/10 ML ONE (11:47)
[2017-07-08] MEDS: SUBLIMAZE ONE ×2 (12:02→12:09)
[2017-07-08] MEDS: VERSED ONE ×2 (12:02→12:09)
[2017-07-08] MEDS: XYLOCAINE 2% INFILTRATI ONE ×2 (12:02→12:10)
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
--- NOTE | 2017-07-08 13:17 | Cardiac Catherization Report ---
CARDIAC CATHETERIZATION REPORT REASON FOR PROCEDURE: The patient is a 57-year-old woman, who presented with heart failure, echocardiogram demonstrated severe mitral stenosis. A right and left heart catheterization was recommended. PROCEDURE: 1. Right heart catheterization. 2. Left heart catheterization. 3. Left ventricular angiography. 4. Selective right and left coronary angiography. The patient was prepped and draped in a sterile fashion after informed consent. The right femoral artery and vein were both entered using the Seldinger technique. A 6-Sammarinese sheath was placed in the artery and an 8-Sammarinese sheath in the vein. [place] catheter was then advanced to the pulmonary artery position. Cardiac output was measured using a thermodilution method. A pigtail catheter was then advanced into the left ventricle. Simultaneous right and left heart filling pressures were recorded. The [place] catheter was then withdrawn, and right heart pressures were recorded on pullback of the [place]. The pigtail catheter was then withdrawn across the aortic valve and transaortic pressures were recorded. Finally, selective left and right coronary angiography was performed using #4 right and left Ortiz catheters. The catheters were then withdrawn, sheaths removed, and hemostasis achieved using manual compression. The patient was returned to the postprocedure unit in stable condition. There were no complications. FINDINGS: HEMODYNAMICS: The mean right atrial pressure was 12. Right ventricular pressure was 60/15. Pulmonary artery pressure was 60/30. The mean pulmonary artery wedge pressure was 30. Left ventricular end-diastolic pressure was 20 to 25. Cardiac output 4.64 liters per minute. Ascending aortic pressure was 104/55. There was no significant pressure gradient on pullback across the aortic valve. MITRAL VALVE STENOSIS: Simultaneous left ventricular end diastolic and pulmonary artery wedge pressures revealed a mean transmitral gradient of 18.3 mmHg. Using the Gorlin equation, the mitral valve area was calculated at 0.89 square cm. CORONARY ANGIOGRAPHY: The left main, left anterior descending artery and its diagonal branches were free of significant disease. The circumflex artery and its obtuse marginal branches contained mild irregularities. The right coronary artery was dominant and was similarly free of significant disease. There was normal left ventricular systolic function with ejection fraction estimated at 50%. CONCLUSION: 1. Severe mitral valve stenosis, with a mean transmitral gradient of 18.3 and valve area calculated at 0.89 square cm. 2. Moderate pulmonary hypertension. 3. No significant coronary artery disease, essentially angiographically near normal coronary arteries. 4. Normal left ventricular systolic function, ejection fraction 50%. RECOMMENDATION: The patient will be recommended for CT surgical evaluation for mitral valve replacement. JOB# [id number] CA/NTS
[2017-07-08] MEDS ORDERED: NACL 0.9% 1000 ML 1,000 ML IV SCH (14:00)
--- NOTE | 2017-07-08 17:00 | Progress Note ---
Assessment and Plan Acute diastolic heart failure: Cardiac cath showed severe MS, moderate pulmonary hypertension, left ventricle ejection fraction of 50%. On Lasix, beta lilia and aneesh inhibitor. Patient is allergic to aspirin. History of pulmonary embolism: D/c warfarin because of planned cardiac catheter , on Lovenox. Hypertension: On antihypertensive meds. Old CVA with no residual neurodeficits: On statin and Lovenox. Patient allergic to aspirin. Asthma: On bronchodilators. DVT prophylaxis with Lovenox. Disposition: Lay on her back for 12 hrs b/c of cardiac cath via femoral cardiac. Possible D/c in am Subjective Date of service: 07/08/17 Principal diagnosis: Acute on chronic heart failure Interval history: No overnight events. Has no complaints. Objective - Constitutional Vitals: Vital Signs - 12hr 07/08/17 07/08/17 07/08/17 06:04 08:00 08:25 Temperature 98.4 F 98.4 F Pulse Rate 81 83 Pulse Rate [ 86 Anterior Bilateral Throughout] Respiratory 18 18 Rate Respiratory 18 Rate [Anterior Bilateral Throughout] Blood Pressure 98/57 Blood Pressure 94/62 [Left] O2 Sat by Pulse 98 100 Oximetry 07/08/17 07/08/17 07/08/17 09:13 11:00 12:21 Temperature 97.4 F L Pulse Rate 77 82 Pulse Rate [ 88 Anterior Bilateral Throughout] Respiratory 20 Rate Respiratory 18 Rate [Anterior Bilateral Throughout] Blood Pressure Blood Pressure 114/59 [Left] O2 Sat by Pulse 97 Oximetry 07/08/17 07/08/17 15:04 15:26 Temperature 98.2 F Pulse Rate 83 85 Pulse Rate [ Anterior Bilateral Throughout] Respiratory 18 Rate Respiratory Rate [Anterior Bilateral Throughout] Blood Pressure 98/59 Blood Pressure 97/61 [Left] O2 Sat by Pulse 97 97 Oximetry General appearance: Present: no acute distress, well-nourished - EENT Eyes: PERRL, EOM intact ENT: hearing intact, clear oral mucosa Ears: bilateral: normal - Neck Neck: supple, normal ROM - Respiratory Respiratory effort: normal Respiratory: bilateral: CTA - Breasts Breasts: normal - Cardiovascular Rhythm: regular Heart Sounds: Present: S1 & S2. Absent: gallop, rub Extremities: pulses intact, No edema, normal color, Full ROM - Gastrointestinal General gastrointestinal: Present: soft, non-tender, non-distended, normal bowel sounds - Genitourinary Female genitourinary: normal - Integumentary Integumentary: clear, warm, dry - Musculoskeletal Musculoskeletal: 1, strength equal bilaterally - Neurologic Neurologic: moves all extremities - Psychiatric Psychiatric: memory intact, appropriate mood/affect, intact judgment & insight - Labs CBC & Chem 7: 07/07/17 14:28 07/07/17 14:28 Labs: Abnormal lab results 07/08/17 Range/Units 04:44 PT 16.8 H (12.2-14.9) Sec. INR 1.29 H (0.87-1.13)
[2017-07-08] MEDS: TOPROL XL PO SCH (18:21)
[2017-07-08] MEDS: K-DUR PO SCH (18:21)
[2017-07-08] MEDS: ZESTRIL PO SCH (18:21)
[2017-07-08] MEDS: LASIX IV SCH (18:21)
[2017-07-08] MEDS: PAXIL PO SCH (18:21)
[2017-07-08] MEDS: LOVENOX SUB-Q SCH ×2 (18:21→21:45)
[2017-07-08] MEDS: FLONASE NS SCH (18:21)
[2017-07-08] MEDS: SINGULAIR PO SCH (18:40)
[2017-07-08] MEDS: PRAVACHOL PO SCH (21:45)
[2017-07-09 06:22] LABS: INR 1.14 (0.87-1.13)
[2017-07-09] MEDS: LASIX IV SCH (06:29)
[2017-07-09] MEDS: DUONEB *Not for PRN Use IH SCH (07:37)
[2017-07-09 09:04] VITALS: BP 107/60
--- NOTE | 2017-07-09 09:49 | Discharge Summary ---
Providers - Providers Date of Admission: 07/04/17 00:48 Attending physician: JIMBO KANG MD 07/04/17 00:48 Consult to Physician [CONS] Routine Consulting Provider: EDWARD VALERA Reason For Exam: chf Place consult to:: [facility] Notified:: y Comment:: added to list 07/08/17 13:05 Consult to Cardiac Rehabilitation [CONS] Routine Reason For Exam: Cardiac Rehab Evaluation Primary care physician: NET SORTER Hospitalization Reason for admission: SHORTNESS OF BREATH Condition: Stable Hospital course: 57 year old woman with history of HTN, PE, asthma, CVA comes to the emergency room with complaints of SOB, lower extremity edeman and orthropnea for 1 week. She was noted to have acute diastolic congestive heart failure and was treated, cardiology recommmended a cardiac cath for better evaluation of mitral valve stenosis noted on echo, it was noted to be severe, the patient was refered to a CT surgeon at [facility] and agreed but wanted to go home first. she was discharged in stable condition with explanation of severity of her condition. CHF, acute , new onset, diastolic Hypertension Severe mitral valve stenosis CVA-old with no residual effects Pulmonary emboli on coumadin Asthma Moderate pulmonary HTN. Disposition: DC-01 TO HOME OR SELFCARE Time spent for discharge: 35 mins Core Measure Documentation - Palliative Care Palliative Care/ Comfort Measures: Not Applicable - Core Measures Any of the following diagnoses?: heart failure - VTE Discharge Requirements Deep Vein Thrombosis/Pulmonary Embolism Present on Admission: No - Heart Failure Discharge Requirements EBNOY/ARB for LVSD if EF <40%: Yes Beta lilia at discharge: Yes Exam - Physical Exam Narrative exam: VITAL SIGNS: Reviewed. GENERAL: The patient appeared well nourished and normally developed. Vital signs as documented. HEAD: No signs of head trauma. EYES: Pupils are equal. Extraocular motions intact. EARS: Hearing grossly intact. MOUTH: Oropharynx is normal. NECK: No adenopathy, no JVD. CHEST: Chest with clear breath sounds bilaterally. No wheezes, rales, or rhonchi. CARDIAC: Regular rate and rhythm. S1 and S2, and diastolic heart murmur,no gallops, or rubs. VASCULAR: No Edema. Peripheral pulses normal and equal in all extremities. ABDOMEN: Soft, without detectable tenderness. No sign of distention. No rebound or guarding, and no masses palpated. Bowel Sounds normal. MUSCULOSKELETAL: Good range of motion of all major joints. Extremities without clubbing, cyanosis or edema. NEUROLOGIC EXAM: Alert and oriented x 3. No focal sensory or strength deficits. Speech normal. Follows commands. PSYCHIATRIC: Mood normal. SKIN: No rash or lesions. - Constitutional Vitals: Temp Pulse Resp BP Pulse Ox 98.8 F 94 H 18 107/60 100 07/09/17 09:03 07/09/17 09:03 07/09/17 09:03 07/09/17 09:03 07/09/17 09:03 Plan Activity: advance as tolerated, fall precautions Diet: low salt Special Instructions: record daily weights, record daily BP diary Follow up with: EDWARD VALERA MD [Staff Physician] - 7 Days MARIIA THOMPSON MD [Referring] - 7 Days DREAD CERON MD [Referring] - 07/15/17 3:30 pm (Please bring the CD with the images from your Cardiac Catherization & ECHO when you come to this appointment. If you do not bring the CD with you, your appointment will have to be re-scheduled. Thank you.) PRIMARY CARE, [Primary Care Provider] - 3-5 Days Forms: CardCath PCI D/C Instructions, Warfarin Discharge Instruction Prescriptions: Lisinopril [Zestril TAB] 2.5 mg PO QDAY #30 tablet
[2017-07-09] MEDS ORDERED: LOVENOX SUB-Q SCH (10:00)
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
[2017-07-09] MEDS: PAXIL PO SCH (10:57)
[2017-07-09] MEDS: FLONASE NS SCH (10:57)
[2017-07-09] MEDS: K-DUR PO SCH (10:58)
[2017-07-09] MEDS: TOPROL XL PO SCH (10:58)
[2017-07-09] MEDS: ZESTRIL PO SCH (10:58)
== END 2017-07-09 16:35 | disposition home or self-care (01) | DRG 287 ==
LOC: ED 17:58 → 4A 07-04 00:48
PROVIDERS: ADMIT Internal Medicine; ATTEND Internal Medicine
PROC: 3E0234Z Introduction of Serum, Toxoid and Vaccine into Muscle, Percutaneous Approach (ICD-10-PCS; 2017-07-04)
PROC: 4A023N8 Measurement of Cardiac Sampling and Pressure, Bilateral, Percutaneous Approach (ICD-10-PCS; principal; 2017-07-08)
PROC: B2111ZZ Fluoroscopy of Multiple Coronary Arteries using Low Osmolar Contrast (ICD-10-PCS; 2017-07-08)
PROC: B2161ZZ Fluoroscopy of Right and Left Heart using Low Osmolar Contrast (ICD-10-PCS; 2017-07-08)
DX: I11.0 Hypertensive heart disease with heart failure (principal); I69.351 Hemiplegia and hemiparesis following cerebral infarction affecting right dominant side; J45.909 Unspecified asthma, uncomplicated; F12.90 Cannabis use, unspecified, uncomplicated; F17.200 Nicotine dependence, unspecified, uncomplicated; I50.33 Acute on chronic diastolic (congestive) heart failure; I05.0 Rheumatic mitral stenosis; I27.20 Pulmonary hypertension, unspecified; Z88.6 Allergy status to analgesic agent; Z86.711 Personal history of pulmonary embolism; Z79.01 Long term (current) use of anticoagulants; Z72.89 Other problems related to lifestyle; Z79.899 Other long term (current) drug therapy; Z98.51 Tubal ligation status; Z79.51 Long term (current) use of inhaled steroids; Z23 Encounter for immunization
CPT/HCPCS: 36415; 71020; 71275; 80048; 82962; 83880; 84484; 84703; 85025; 85379; 85610; 85730; 90686; 90732; 93005; 93010; 93306; 93460; 93970; 94640; 96374; 99406; A9270-GY; C1769; C1894; J1644; J1650; J1940; J2250; J3010; J7040; J7050; Q9967

== ENCOUNTER 2017-08-21 00:25 | Emergency (ER) | payer MEDICARE ==
[2017-08-21 01:36] VITALS: BP 103/61
[2017-08-21 02:31] LABS: Basophils % (Auto) 0.5 % (0.0-1.8); Eosinophils # (Auto) 0.1 K/mm3 (0.0-0.4); Eosinophils % (Auto) 1.4 % (0.0-4.3); Hemoglobin 9.4 gm/dl (10.1-14.3); Lymphocytes # (Auto) 0.9 K/mm3 (1.2-5.4); Mean Corpuscular HGB Conc 33 % (30-34); Mean Corpuscular Volume 74 fl (79-97); Monocytes # (Auto) 0.6 K/mm3 (0.0-0.8); Monocytes % (Auto) 10.8 % (0.0-7.3); Platelet Count 461 K/mm3 (140-440); Red Blood Count 3.93 M/mm3 (3.65-5.03); Red Cell Distribution Width 18.9 % (13.2-15.2)
[2017-08-21 02:41] LABS: Mean Corpuscular Hemoglobin 24 pg (28-32)
[2017-08-21 05:42] LABS: Bacteria,Urine 2+ /HPF (Negative); Bilirubin,Urine NEG (Negative); Blood,Urine LG (Negative); Color,Urine Amber (Yellow); Mucus,Urine FEW /HPF; Nitrite,Urine NEG (Negative)
== END 2017-08-21 10:45 | disposition left against medical advice (07) ==
LOC: ED 00:25
DX: N93.9 Abnormal uterine and vaginal bleeding, unspecified (principal); Z53.21 Procedure and treatment not carried out due to patient leaving prior to being seen by health care provider
CPT/HCPCS: 36415; 81001; 84702; 85025; 86850; 86900; 86901